=== PATIENT | female | born 1970 | race Caucasian/White ===

== ENCOUNTER → 2022-03-24 | Outpatient (CLI) | payer SELFPAY ==
--- NOTE | 2022-03-25 00:15 | EEG ---
ELECTROENCEPHALOGRAM REPORT CLINICAL HISTORY: This is a 52-year-old woman, who had a reported episode of possible seizure-like (shaking of the arms, eyes rolling back and foaming around mouth). The video EEG is obtained to evaluate for seizure epileptiform activity. RELEVANT MEDICATION: The patient is not on any seizure medication. EEG TYPE: A routine 21-channel EEG is performed with video using the 10/20 electrode placement system. DESCRIPTION: Wakefulness is only obtained. During awake state, the posterior-dominant rhythm consists of [id number] voltage of 10 to 11 hertz activity that is well modulated, well sustained. There is no physiological stage 2 sleep architecture. There is no focal slowing. Interictal and ictal: During drowsiness state , there is rare low to moderate voltage of 3-4 hertz delta activity that is semirhythmic over the right central region lasting 3 to 20 seconds without evolution to seizure. No seizure noted. ACTIVATION PROCEDURE: Photic stimulation did not evoke a posterior driving response. There is no abnormality during photic stimulation. Hyperventilation was not performed. CLINICAL INTERPRETATION: This is an abnormal routine EEG. During drowsiness state, there is rare slowing over the right central region without evolution to seizure. Otherwise background is normal, no clear seizures or epileptiform discharges. Because of slowing seen on routine EEG and reported episode of possible seizure- like activity, highly recommend prolonged EEG (consider sleep deprived)/ambulatory EEG for further evaluation. Clinical correlation is recommended. RALPH / NEVILLE: [id number] / RILEY
== END ==
LOC: NEUROMAIN 07:21
DX: R56.9 Unspecified convulsions (principal)
CPT/HCPCS: 95816